=== PATIENT | female | born 1975 | race American Indian/Alaskan Native ===

== ENCOUNTER 2017-04-13 12:39 | Emergency (ER) | payer MEDICAID ==
[2017-04-13 13:28] VITALS: TEMP 98.1; O2SAT 100
[2017-04-13 13:34] VITALS: BMI 38.9
[2017-04-13] MEDS ORDERED: oxyCODONE 5 mg Immediate Release Tab PO STA (13:56)
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
--- NOTE | 2017-04-13 15:02 | RAD ---
PROCEDURE: Right Ankle Radiographs. HISTORY: r/o fx COMPARISON: None FINDINGS: BONES: Normal. No fracture. JOINTS: Normal. No osteoarthritis. Ankle mortise maintained. Talar dome intact SOFT TISSUES: Normal. OTHER FINDINGS: None. IMPRESSION: Normal right ankle radiographs.
--- NOTE | 2017-04-13 15:03 | RAD ---
PROCEDURE: Right Foot Radiographs. HISTORY: r/o fx COMPARISON: None. FINDINGS: BONES: Normal. No fracture. JOINTS: Normal. SOFT TISSUES: Normal. OTHER FINDINGS: None. IMPRESSION: No acute findings
[2017-04-13 16:05] VITALS: BP 147/88; PULSE 70; RESP 17
== END 2017-04-13 16:06 | disposition home or self-care (01) ==
LOC: ED 12:39
DX: M79.671 Pain in right foot (principal)

== ENCOUNTER 2017-04-14 18:25 | Observation (INO) | payer MEDICAID ==
[2017-04-14 18:33] VITALS: BMI 39.8
[2017-04-14] MEDS ORDERED: Oxycodone/Acetaminophen 5/325 mg Tab PO STA (18:47)
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
[2017-04-14 22:04] LABS: ADD MANUAL DIFF? NO
[2017-04-14 22:11] LABS: BASO # 0.03 K/mm3 (0.0-2.0); BASO % 0.3 % (0.0-3.0); EOS # 0.2 (0.0-0.7); EOS % 2.2 % (1.5-5.0); GRAN # 5.14 (1.4-6.5); HEMATOCRIT 35.8 % (36.0-48.0); LYMPH # 4.3 (1.2-3.4); LYMPH % 41.2 % (22.0-35.0); MEAN CELL VOLUME 87.3 fL (80.0-105.0); MEAN CORPUSCULAR HEMOGLOBIN 28.5 pg (25.0-35.0); MEAN CORPUSCULAR HGB CONC 32.7 g/dl (31.0-37.0); MEAN PLATELET VOLUME 9.1 fl (7.0-11.0); MONO # 0.8 (0.1-0.6); MONO % 7.3 % (1.0-6.0); PLATELET COUNT 486 10^3/uL (120.0-450.0); RED CELL DISTRIBUTION WIDTH 14.8 % (11.5-14.5); WHITE BLOOD COUNT 10.5 10^3/ul (4.5-11.0)
[2017-04-14 22:18] LABS: ALB/GLOB RATIO 1.4 (1.1-1.8); ALKALINE PHOSPHATASE 67 U/L (38-133); ALT/SGPT 32 U/L (7-56); AST/SGOT 29 U/L (15-39); BILIRUBIN,TOTAL 0.3 mg/dL (0.2-1.3); BLOOD UREA NITROGEN 15 mg/dL (7-21); CALCIUM 9.2 mg/dL (8.4-10.5); CARBON DIOXIDE 27 mmol/L (21-33); CHLORIDE 104 mmol/L (98-107); GFR AFRICAN-AMERICAN > 60; GLUCOSE,RANDOM 91 mg/dL (70-110); POTASSIUM 3.8 mmol/L (3.6-5.0); SODIUM 139 mmol/L (132-148); TOTAL PROTEIN 7.3 g/dL (5.8-8.3)
[2017-04-14 22:20] LABS: INR 0.99 (0.93-1.08); PARTIAL THROMBOPLASTIN TIME 27.8 Seconds (23.7-30.8)
[2017-04-14] MEDS ORDERED: Albuterol HFA 90 mcg/actuation (8 g) IH PRN (23:09)
[2017-04-14] MEDS ORDERED: Albuterol 0.083% Inhal Sol (2.5 mg/3 mL) UD IH PRN (23:21)
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
[2017-04-15 07:46] LABS: ADD MANUAL DIFF? NO
[2017-04-15 07:59] LABS: BASO # 0.03 K/mm3 (0.0-2.0); BASO % 0.4 % (0.0-3.0); EOS # 0.3 (0.0-0.7); EOS % 3.3 % (1.5-5.0); GRAN # 3.13 (1.4-6.5); GRAN % 41.3 % (50.0-68.0); HEMATOCRIT 34.2 % (36.0-48.0); LYMPH # 3.6 (1.2-3.4); MEAN CELL VOLUME 87.5 fL (80.0-105.0); MEAN CORPUSCULAR HEMOGLOBIN 28.9 pg (25.0-35.0); MEAN PLATELET VOLUME 9.1 fl (7.0-11.0); MONO # 0.6 (0.1-0.6); PLATELET COUNT 446 10^3/uL (120.0-450.0); RED CELL DISTRIBUTION WIDTH 14.9 % (11.5-14.5); WHITE BLOOD COUNT 7.6 10^3/ul (4.5-11.0)
[2017-04-15 08:06] LABS: ALB/GLOB RATIO 1.3 (1.1-1.8); ALKALINE PHOSPHATASE 55 U/L (38-133); ALT/SGPT 29 U/L (7-56); AST/SGOT 24 U/L (15-39); BILIRUBIN,TOTAL 0.4 mg/dL (0.2-1.3); BLOOD UREA NITROGEN 14 mg/dL (7-21); CALCIUM 8.7 mg/dL (8.4-10.5); CARBON DIOXIDE 28 mmol/L (21-33); CHLORIDE 105 mmol/L (98-107); GFR AFRICAN-AMERICAN > 60; GLUCOSE,RANDOM 94 mg/dL (70-110); SODIUM 138 mmol/L (132-148); TOTAL PROTEIN 6.6 g/dL (5.8-8.3)
--- NOTE | 2017-04-15 12:14 | CON ---
DATE: 04/15/2017 NEUROLOGY CONSULT CHIEF COMPLAINT: Right foot pain. HISTORY OF PRESENTING ILLNESS: This is a 42-year-old woman with past medical history of complex milly onal pain syndromes, Lyme disease, sarcoidosis, dizziness, fibromyalgia presented to the hospital for right ankle and right foot pain. The patient stated that she has been having complex regional pain syndrome affecting her left leg, and that she had some trauma at the snf. Therefore, she swain d left foot pain and could not bear weight on it, therefore, was bearing weight mostly on her right f oot. She says now she cannot bear feet on her right leg due to right foot pain. She has tried Neuro ntin, Lyrica, Cymbalta - almost every neuropathic drug on the list, has not had any minimal relief. She came down from ____ to meet a pain specialist. X-rays of the foot showed no acute findings. She is able to move her legs without any difficulty, just sensitivity to touch on both feet. She withdr kelvin to localized noxious stimulus, and proprioception is intact in the lower extremities. PAST MEDICAL HISTORY: History of complex regional pain syndrome, Lyme disease, sarcoidosis, dizzines s, fibromyalgia. PAST SURGICAL HISTORY: , tonsillectomy. ALLERGIES: ASPIRIN, ACETAMINOPHEN, IBUPROFEN, HEPARIN. SOCIAL HISTORY: No illicit drug use, smoking, or ETOH abuse, uses. REVIEW OF SYSTEMS: A 14-point review of systems is negative except for the HPI. PHYSICAL EXAMINATION: VITAL SIGNS: Temperature of 97.8, pulse rate 61, blood pressure 129/83, respiratory rate of 20, oxyg en saturation 98% via room air. GENERAL: The patient is sitting up in bed in no acute distress. HEENT: Atraumatic, normocephalic. PERRLA. Extraocular muscles intact. NECK: Supple. No JVD, no adenopathy noted. LUNGS: Clear to auscultation. No adventitious sounds. HEART: S1, S2, normal rate and rhythm. No murmurs, rubs, or gallops. ABDOMEN: Soft, nontender, nondistended. Bowel sounds are present. EXTREMITIES: No clubbing, no cyanosis. Peripheral pulses 2+ felt bilaterally. NEUROLOGIC: The patient is alert, oriented to person, place, month, and year. Speech is fluent with out any errors. Cranial nerves II-XII are intact. MOTOR: Moves all extremities equally. Toes are downgoing bilaterally. Normal tone, normal bulk of muscle. SENSORY: Light touch, pinprick, proprioception, vibration. DTRs 2+ throughout. COORDINATION: [id number]-[id number] intact. Gait is deferred for now. MUSCULOSKELETAL: She is able to feel her right foot, but has sensitivity to touch, has allodynia jordyn aterally in both feet. LABORATORY DATA: Sodium is 138, potassium 4, chloride 105, carbon dioxide 28, BUN of 14, creatinine 0.7. Random glucose is 94. ASSESSMENT AND PLAN: This is a 42-year-old woman with past medical history of complex regional pain syndrome?, Lyme disease, sarcoidosis, dizziness, asthma, and fibromyalgia presented with intractable right foot pain, and has already baseline left foot pain, came from ____ to seek for a pain specialis t, and was brought in for worsening right foot pain, unbearable to stand on her feet. At this time, I question that this is really a truly complex regional pain syndrome given the fact th at her temperature of her feet are intact, and there is no history of any major prior trauma, though it can be possibly type 1 as well. At this time, recommend interventional pain specialist or possibly sympathetic blocks to celiac/lumbo sacral plexus to help with pain. Continue with her amitriptyline ____ mg p.o. at bedtime, and will g et a physical therapy evaluation. Most of her workup is mostly outpatient, therefore, could consult pain specialist outpatient as well. At this time, continue current present medical management. Thank you for this consult. Emigdio Mccarty MD cc: [phone] TT: 04/15/2017 12:14:08 Confirmation # [id number] Dictation # [id number] romina
--- NOTE | 2017-04-15 14:43 | US ---
PROCEDURE: Right lower extremity venous US HISTORY: Leg pain and swelling. Evaluate for DVT. PHYSICIAN(S): Alexander Conway M.D. TECHNIQUE: Duplex sonography and color-flow Doppler with graded compression were used to evaluate the deep venous system of the right lower extremity. FINDINGS: The visualized deep venous system of the right lower extremity is sonographically normal and compressible. Normal waveforms and augmentation are seen. There is no sonographic evidence for deep venous thrombosis in the visualized segments of the right lower extremity. IMPRESSION: 1. No sonographic evidence for deep venous thrombosis in the visualized segments of the right lower extremity.
[2017-04-16 07:31] LABS: ADD MANUAL DIFF? NO
[2017-04-16 07:57] LABS: ALB/GLOB RATIO 1.3 (1.1-1.8); ALKALINE PHOSPHATASE 59 U/L (38-133); ALT/SGPT 27 U/L (7-56); AST/SGOT 23 U/L (15-39); BILIRUBIN,TOTAL 0.3 mg/dL (0.2-1.3); BLOOD UREA NITROGEN 8 mg/dL (7-21); CALCIUM 8.6 mg/dL (8.4-10.5); CARBON DIOXIDE 25 mmol/L (21-33); CHLORIDE 104 mmol/L (98-107); GFR AFRICAN-AMERICAN > 60; GLUCOSE,RANDOM 90 mg/dL (70-110); POTASSIUM 4.1 mmol/L (3.6-5.0); SODIUM 138 mmol/L (132-148); TOTAL PROTEIN 6.8 g/dL (5.8-8.3)
[2017-04-16 09:08] LABS: BASO # 0.03 K/mm3 (0.0-2.0); BASO % 0.4 % (0.0-3.0); EOS # 0.3 (0.0-0.7); EOS % 3.6 % (1.5-5.0); GRAN # 4.17 (1.4-6.5); GRAN % 49.4 % (50.0-68.0); HEMATOCRIT 37.3 % (36.0-48.0); LYMPH # 3.3 (1.2-3.4); LYMPH % 39.1 % (22.0-35.0); MEAN CELL VOLUME 86.5 fL (80.0-105.0); MEAN CORPUSCULAR HEMOGLOBIN 28.5 pg (25.0-35.0); MEAN PLATELET VOLUME 9.3 fl (7.0-11.0); MONO # 0.6 (0.1-0.6); MONO % 7.5 % (1.0-6.0); PLATELET COUNT 480 10^3/uL (120.0-450.0); RED CELL DISTRIBUTION WIDTH 14.4 % (11.5-14.5); WHITE BLOOD COUNT 8.4 10^3/ul (4.5-11.0)
[2017-04-16] MEDS: Oxycodone/Acetaminophen 5/325 mg Tab PO PRN ×2 (14:08→21:44)
[2017-04-16] MEDS: oxyCODONE 10 mg ER Tab (oxyCONTIN) PO SCH (17:18)
--- NOTE | 2017-04-16 17:22 | CP.PCM.PN ---
<SekouRoberto coulter - Last Filed: 04/16/17 17:16> Subjective - Date & Time of Evaluation Date of Evaluation: 04/16/17 Time of Evaluation: 09:00 - Subjective Subjective: Medicine Progress note. Dr. Ibanez Pt seen and examined at bedside. No acute events overnight. Still with lower extremity pain. Patient states that she plans on working with Physical therapy today. Denies any CP/SOB. No N/V/D. no Abd pain. no new complaints. Objective - Vital Signs/Intake and Output Vital Signs (last 24 hours): Temp Pulse Resp BP Pulse Ox 98.2 F 76 20 144/86 99 04/16/17 16:00 04/16/17 16:00 04/16/17 16:00 04/16/17 16:00 04/16/17 16:00 Intake and Output: 04/16/17 04/16/17 06:59 18:59 Intake Total 900 Balance 900 - Medications Medications: Current Medications Albuterol Sulfate (Albuterol 0.083% Inhal Sandee (2.5 Mg/3 Ml) Ud) 2.5 mg IH [id number] PRN PRN Reason: Shortness of Breath Amitriptyline HCl (Elavil) 10 mg PO HS [facility] Last Admin: 04/15/17 21:37 Dose: 10 mg Cyclobenzaprine HCl (Flexeril) 10 mg PO TID PRN PRN Reason: Pain, moderate (4-7) Last Admin: 04/16/17 12:29 Dose: 10 mg Famotidine (Pepcid) 20 mg PO DAILY [facility] Last Admin: 04/16/17 09:52 Dose: 20 mg Ketorolac Tromethamine (Toradol) 30 mg IVP Q6 PRN PRN Reason: Pain, moderate (4-7) Last Admin: 04/16/17 07:48 Dose: 30 mg Ondansetron HCl (Zofran Tab) 4 mg PO Q8H PRN PRN Reason: Nausea/Vomiting Last Admin: 04/16/17 00:27 Dose: 4 mg Oxycodone HCl (Oxycontin Extended Release Tab) 10 mg PO Q12H [facility] Stop: 04/19/17 18:01 Oxycodone/Acetaminophen (Percocet 5/325 Mg Tab) 1 tab PO Q6H PRN PRN Reason: Pain, severe (8-10) Stop: 04/19/17 13:45 Last Admin: 04/16/17 14:08 Dose: 1 tab - Labs Labs: 04/16/17 07:00 04/16/17 07:00 PT 10.7 Seconds (9.9-11.8) 04/14/17 21:59 INR 0.99 (0.93-1.08) 04/14/17 21:59 APTT 27.8 Seconds (23.7-30.8) 04/14/17 21:59 - Constitutional Appears: Well, No Acute Distress - Head Exam Head Exam: ATRAUMATIC, NORMAL INSPECTION, NORMOCEPHALIC - Eye Exam Eye Exam: EOMI, Normal appearance, PERRL. absent: Scleral icterus Pupil Exam: PERRL - ENT Exam ENT Exam: Mucous Membranes Moist - Neck Exam Neck Exam: Full ROM - Respiratory Exam Respiratory Exam: Clear to Ausculation Bilateral, Rales, Rhonchi, NORMAL BREATHING PATTERN. absent: Decreased Breath Sounds, Wheezes, Respiratory Distress - GI/Abdominal Exam GI & Abdominal Exam: Soft. absent: Distended, Firm, Guarding, Rigid, Tenderness , Rebound - Extremities Exam Additional comments: tender to palpation on posterior aspect of right ankle. No apparent swelling. Distal pulses are intact. Temperature is equal bilaterally. Sensation is intact. - Neurological Exam Neurological Exam: Alert, Awake, Oriented x3 Neuro motor strength exam: Left Upper Extremity: 5, Right Upper Extremity: 5, Left Lower Extremity: 5, Right Lower Extremity: 5 - Psychiatric Exam Psychiatric exam: Normal Affect, Normal Mood - Skin Skin Exam: Dry, Intact, Normal Color, Warm Assessment and Plan - Assessment and Plan (Free Text) Assessment: 42yo F with PMHx of complex regional pain syndrome, lyme disease, sarcoidosis, asthma, fibromyalgia presents with intractable right leg pain. Plan: 1. intractable right leg pain - xray showed no acute disease - LE US wnl - cont home med of amitriptyline - Pain management: toradol q6 prn pain, Percocet prn - Neurology consult obtained, Dr. Mccarty, appreciate recs Consider interventional pain specialist would benefit with out-patient follow up - Pain management consult requested, Dr. Auguste, appreciate recs 2. asthma - albuterol PRN 3. PPx pepcid SCDs Dispo: Physical Therapy recommends Home w/Services vs. Subacute Rehab Social work: pending placement to [facility] Discussed case with Dr. Shamar Sapp PGY1 <Asia Ibanez MD - Last Filed: 04/18/17 08:00> Objective - Vital Signs/Intake and Output Vital Signs (last 24 hours): Temp Pulse Resp BP Pulse Ox 98.8 F 66 18 133/67 100 04/17/17 17:28 04/17/17 17:28 04/17/17 17:28 04/17/17 17:28 04/17/17 17:28 Intake and Output: 04/18/17 04/18/17 06:59 18:59 Intake Total 1240 Balance 1240 - Medications Medications: Current Medications Albuterol Sulfate (Albuterol 0.083% Inhal Sandee (2.5 Mg/3 Ml) Ud) 2.5 mg IH [id number] PRN PRN Reason: Shortness of Breath Amitriptyline HCl (Elavil) 10 mg PO HS [facility] Last Admin: 04/17/17 21:36 Dose: 10 mg Cyclobenzaprine HCl (Flexeril) 10 mg PO TID PRN PRN Reason: Pain, moderate (4-7) Last Admin: 04/17/17 21:37 Dose: 10 mg Famotidine (Pepcid) 20 mg PO DAILY [facility] Last Admin: 04/17/17 10:47 Dose: 20 mg Ketorolac Tromethamine (Toradol) 30 mg IVP Q6 PRN PRN Reason: Pain, moderate (4-7) Last Admin: 04/18/17 00:04 Dose: 30 mg Ondansetron HCl (Zofran Tab) 4 mg PO Q8H PRN PRN Reason: Nausea/Vomiting Last Admin: 04/16/17 00:27 Dose: 4 mg Oxycodone HCl (Oxycontin Extended Release Tab) 10 mg PO Q12H [facility] Stop: 04/19/17 18:01 Last Admin: 04/18/17 05:57 Dose: 10 mg Oxycodone/Acetaminophen (Percocet 5/325 Mg Tab) 1 tab PO Q6H PRN PRN Reason: Pain, severe (8-10) Stop: 04/19/17 13:45 Last Admin: 04/18/17 03:31 Dose: 1 tab - Labs Labs: 04/17/17 05:00 04/17/17 05:00 PT 10.7 Seconds (9.9-11.8) 04/14/17 21:59 INR 0.99 (0.93-1.08) 04/14/17 21:59 APTT 27.8 Seconds (23.7-30.8) 04/14/17 21:59 Attending/Attestation - Attestation I have personally seen and examined this patient.: Yes I have fully participated in the care of the patient.: Yes I have reviewed all pertinent clinical information, including history, physical exam and plan: Yes Notes (Text): 04/18/17 08:00 Patient was seen and examined with medical assisting instructor .Agreed with resident assessment and plan. Management plan was discussed in detail with patient Education was provided.
[2017-04-16] MEDS ORDERED: oxyCODONE 10 mg ER Tab (oxyCONTIN) PO SCH (18:00)
[2017-04-17] MEDS: Oxycodone/Acetaminophen 5/325 mg Tab PO PRN ×3 (04:21→21:41)
[2017-04-17] MEDS: oxyCODONE 10 mg ER Tab (oxyCONTIN) PO SCH ×2 (06:06→17:44)
[2017-04-17 07:17] LABS: ADD MANUAL DIFF? NO
[2017-04-17 07:27] LABS: BASO # 0.04 K/mm3 (0.0-2.0); BASO % 0.4 % (0.0-3.0); EOS # 0.2 (0.0-0.7); EOS % 2.5 % (1.5-5.0); GRAN # 3.95 (1.4-6.5); GRAN % 42.1 % (50.0-68.0); LYMPH # 4.4 (1.2-3.4); LYMPH % 46.8 % (22.0-35.0); MEAN CELL VOLUME 87.2 fL (80.0-105.0); MEAN CORPUSCULAR HEMOGLOBIN 28.6 pg (25.0-35.0); MEAN CORPUSCULAR HGB CONC 32.8 g/dl (31.0-37.0); MONO # 0.8 (0.1-0.6); MONO % 8.2 % (1.0-6.0); PLATELET COUNT 487 10^3/uL (120.0-450.0); RED CELL DISTRIBUTION WIDTH 14.3 % (11.5-14.5); WHITE BLOOD COUNT 9.4 10^3/ul (4.5-11.0)
[2017-04-17 07:33] LABS: ALB/GLOB RATIO 1.5 (1.1-1.8); ALKALINE PHOSPHATASE 58 U/L (38-133); ALT/SGPT 30 U/L (7-56); AST/SGOT 23 U/L (15-39); BILIRUBIN,TOTAL 0.3 mg/dL (0.2-1.3); BLOOD UREA NITROGEN 9 mg/dL (7-21); CALCIUM 8.7 mg/dL (8.4-10.5); CARBON DIOXIDE 26 mmol/L (21-33); CHLORIDE 101 mmol/L (95-110); GFR AFRICAN-AMERICAN > 60; GLUCOSE,RANDOM 83 mg/dL (70-110); POTASSIUM 3.8 mmol/L (3.6-5.0); SODIUM 135 mmol/L (132-148); TOTAL PROTEIN 6.9 g/dL (5.8-8.3)
[2017-04-17] MEDS ORDERED: Oxycodone/Acetaminophen 5/325 mg Tab PO ONE (14:52)
--- NOTE | 2017-04-17 16:14 | CP.PCM.PN ---
<SekouRoberto - Last Filed: 04/17/17 16:10> Subjective - Date & Time of Evaluation Date of Evaluation: 04/17/17 Time of Evaluation: 08:00 - Subjective Subjective: Medicine Progress note. Dr. Ibanez Pt seen and examined at bedside. No acute events overnight. Patient still unable to ambulate. States that she plans on working with Physical Therapy today. Denies any CP/SOB. No N/V/D. No Abd pain. Still c/o pain in the right ankle. Objective - Vital Signs/Intake and Output Vital Signs (last 24 hours): Temp Pulse Resp BP Pulse Ox 97.7 F 66 20 141/84 99 04/17/17 08:25 04/17/17 08:25 04/17/17 08:25 04/17/17 08:25 04/17/17 08:25 Intake and Output: 04/17/17 04/17/17 06:59 18:59 Intake Total 1260 Balance 1260 - Medications Medications: Current Medications Albuterol Sulfate (Albuterol 0.083% Inhal Sandee (2.5 Mg/3 Ml) Ud) 2.5 mg IH [id number] PRN PRN Reason: Shortness of Breath Amitriptyline HCl (Elavil) 10 mg PO HS [facility] Last Admin: 04/16/17 21:44 Dose: 10 mg Cyclobenzaprine HCl (Flexeril) 10 mg PO TID PRN PRN Reason: Pain, moderate (4-7) Last Admin: 04/17/17 08:33 Dose: 10 mg Famotidine (Pepcid) 20 mg PO DAILY [facility] Last Admin: 04/17/17 10:47 Dose: 20 mg Ketorolac Tromethamine (Toradol) 30 mg IVP Q6 PRN PRN Reason: Pain, moderate (4-7) Last Admin: 04/17/17 12:55 Dose: 30 mg Ondansetron HCl (Zofran Tab) 4 mg PO Q8H PRN PRN Reason: Nausea/Vomiting Last Admin: 04/16/17 00:27 Dose: 4 mg Oxycodone HCl (Oxycontin Extended Release Tab) 10 mg PO Q12H [facility] Stop: 04/19/17 18:01 Last Admin: 04/17/17 06:06 Dose: 10 mg Oxycodone/Acetaminophen (Percocet 5/325 Mg Tab) 1 tab PO Q6H PRN PRN Reason: Pain, severe (8-10) Stop: 04/19/17 13:45 Last Admin: 04/17/17 10:47 Dose: 1 tab - Labs Labs: 04/17/17 05:00 04/17/17 05:00 PT 10.7 Seconds (9.9-11.8) 04/14/17 21:59 INR 0.99 (0.93-1.08) 04/14/17 21:59 APTT 27.8 Seconds (23.7-30.8) 04/14/17 21:59 - Constitutional Appears: Well, No Acute Distress - Head Exam Head Exam: ATRAUMATIC, NORMAL INSPECTION, NORMOCEPHALIC - Eye Exam Eye Exam: EOMI, Normal appearance, PERRL. absent: Scleral icterus Pupil Exam: PERRL - ENT Exam ENT Exam: Mucous Membranes Moist - Neck Exam Neck Exam: Full ROM - Respiratory Exam Respiratory Exam: Clear to Ausculation Bilateral. absent: Wheezes - Cardiovascular Exam Cardiovascular Exam: RRR, +S1, +S2. absent: JVD, Murmur - GI/Abdominal Exam GI & Abdominal Exam: Soft. absent: Distended, Guarding, Tenderness, Mass, Rebound - Extremities Exam Additional comments: Tender to palpation bilateral ankles, worse right compared to left. No apparent swelling. Distal pulses intact. - Neurological Exam Neurological Exam: Alert, Awake, Oriented x3 - Psychiatric Exam Psychiatric exam: Normal Affect, Normal Mood - Skin Skin Exam: Dry, Intact, Normal Color, Warm Assessment and Plan - Assessment and Plan (Free Text) Assessment: 42yo F with PMHx of complex regional pain syndrome, lyme disease, sarcoidosis, asthma, fibromyalgia presents with intractable right leg pain. Plan: 1. intractable right leg pain - xray showed no acute disease - LE US wnl - cont home med of amitriptyline - Pain management: toradol q6 prn pain, Percocet prn - Neurology consult obtained, Dr. Mccarty, appreciate recs Consider interventional pain specialist would benefit with out-patient follow up - Pain management consult requested, Dr. Auguste, appreciate recs Oxycodone ER 10mg PO q12 2. Hx of Asthma - albuterol PRN 3. PPx pepcid SCDs Dispo: Physical Therapy recommends Home w/Services vs. Subacute Rehab Social work: pending placement to [facility]. Patient denied by insurance to multiple different facilities. Awaiting phone call by Insurance Physician for Peer-to- peer. Discussed case with Dr. Shamar Sapp PGY1 <Shamar ZURITA,Asia - Last Filed: 04/18/17 07:59> Objective - Vital Signs/Intake and Output Vital Signs (last 24 hours): Temp Pulse Resp BP Pulse Ox 98.8 F 66 18 133/67 100 04/17/17 17:28 04/17/17 17:28 04/17/17 17:28 04/17/17 17:28 04/17/17 17:28 Intake and Output: 04/18/17 04/18/17 06:59 18:59 Intake Total 1240 Balance 1240 - Medications Medications: Current Medications Albuterol Sulfate (Albuterol 0.083% Inhal Sandee (2.5 Mg/3 Ml) Ud) 2.5 mg IH [id number] PRN PRN Reason: Shortness of Breath Amitriptyline HCl (Elavil) 10 mg PO HS [facility] Last Admin: 04/17/17 21:36 Dose: 10 mg Cyclobenzaprine HCl (Flexeril) 10 mg PO TID PRN PRN Reason: Pain, moderate (4-7) Last Admin: 04/17/17 21:37 Dose: 10 mg Famotidine (Pepcid) 20 mg PO DAILY [facility] Last Admin: 04/17/17 10:47 Dose: 20 mg Ketorolac Tromethamine (Toradol) 30 mg IVP Q6 PRN PRN Reason: Pain, moderate (4-7) Last Admin: 04/18/17 00:04 Dose: 30 mg Ondansetron HCl (Zofran Tab) 4 mg PO Q8H PRN PRN Reason: Nausea/Vomiting Last Admin: 04/16/17 00:27 Dose: 4 mg Oxycodone HCl (Oxycontin Extended Release Tab) 10 mg PO Q12H [facility] Stop: 04/19/17 18:01 Last Admin: 04/18/17 05:57 Dose: 10 mg Oxycodone/Acetaminophen (Percocet 5/325 Mg Tab) 1 tab PO Q6H PRN PRN Reason: Pain, severe (8-10) Stop: 04/19/17 13:45 Last Admin: 04/18/17 03:31 Dose: 1 tab - Labs Labs: 04/17/17 05:00 04/17/17 05:00 PT 10.7 Seconds (9.9-11.8) 04/14/17 21:59 INR 0.99 (0.93-1.08) 04/14/17 21:59 APTT 27.8 Seconds (23.7-30.8) 04/14/17 21:59 Attending/Attestation - Attestation I have personally seen and examined this patient.: Yes I have fully participated in the care of the patient.: Yes I have reviewed all pertinent clinical information, including history, physical exam and plan: Yes Notes (Text): 04/18/17 07:58 Patient was seen and examined with medical van driver .Agreed with resident assessment and plan. Management plan was discussed in detail with patient Education was provided.
[2017-04-17 23:17] LABS: VITAMIN B6 8.7 ng/mL (2.1-21.7)
[2017-04-18] MEDS: Oxycodone/Acetaminophen 5/325 mg Tab PO PRN ×2 (03:31→11:36)
[2017-04-18] MEDS: oxyCODONE 10 mg ER Tab (oxyCONTIN) PO SCH ×2 (05:57→18:02)
[2017-04-18 08:46] VITALS: RESP 20
--- NOTE | 2017-04-18 16:14 | CP.PCM.PN ---
<Roberto Sapp - Last Filed: 04/18/17 16:20> Subjective - Date & Time of Evaluation Date of Evaluation: 04/18/17 Time of Evaluation: 10:12 - Subjective Subjective: Medicine Progress note. Dr. Ibanez Pt seen and examined at bedside. States that she did not have a good night of restful sleep. Denies any chest pain, sob. No improvement in foot pain. Still unable to ambulate Objective - Vital Signs/Intake and Output Vital Signs (last 24 hours): Temp Pulse Resp BP Pulse Ox 97.6 F 65 20 144/86 99 04/18/17 08:00 04/18/17 08:00 04/18/17 08:00 04/18/17 08:00 04/18/17 08:00 Intake and Output: 04/18/17 04/18/17 06:59 18:59 Intake Total 1240 640 Output Total 3 Balance 1240 637 - Medications Medications: Current Medications Albuterol Sulfate (Albuterol 0.083% Inhal Sandee (2.5 Mg/3 Ml) Ud) 2.5 mg IH [id number] PRN PRN Reason: Shortness of Breath Amitriptyline HCl (Elavil) 10 mg PO HS [facility] Last Admin: 04/17/17 21:36 Dose: 10 mg Cyclobenzaprine HCl (Flexeril) 10 mg PO TID PRN PRN Reason: Pain, moderate (4-7) Last Admin: 04/18/17 13:58 Dose: 10 mg Famotidine (Pepcid) 20 mg PO DAILY [facility] Last Admin: 04/18/17 11:37 Dose: 20 mg Ketorolac Tromethamine (Toradol) 30 mg IVP Q6 PRN PRN Reason: Pain, moderate (4-7) Last Admin: 04/18/17 15:18 Dose: 30 mg Ondansetron HCl (Zofran Tab) 4 mg PO Q8H PRN PRN Reason: Nausea/Vomiting Last Admin: 04/16/17 00:27 Dose: 4 mg Oxycodone HCl (Oxycontin Extended Release Tab) 10 mg PO Q12H [facility] Stop: 04/19/17 18:01 Last Admin: 04/18/17 05:57 Dose: 10 mg Oxycodone/Acetaminophen (Percocet 5/325 Mg Tab) 1 tab PO Q6H PRN PRN Reason: Pain, severe (8-10) Stop: 04/19/17 13:45 Last Admin: 04/18/17 11:36 Dose: 1 tab - Labs Labs: 04/17/17 05:00 04/17/17 05:00 PT 10.7 Seconds (9.9-11.8) 04/14/17 21:59 INR 0.99 (0.93-1.08) 04/14/17 21:59 APTT 27.8 Seconds (23.7-30.8) 04/14/17 21:59 - Constitutional Appears: Well, No Acute Distress - Head Exam Head Exam: ATRAUMATIC, NORMAL INSPECTION, NORMOCEPHALIC - Eye Exam Eye Exam: EOMI, Normal appearance, PERRL. absent: Scleral icterus Pupil Exam: PERRL - ENT Exam ENT Exam: Mucous Membranes Moist - Neck Exam Neck Exam: Full ROM - Respiratory Exam Respiratory Exam: Clear to Ausculation Bilateral, NORMAL BREATHING PATTERN. absent: Wheezes - Cardiovascular Exam Cardiovascular Exam: RRR, +S1, +S2. absent: JVD - GI/Abdominal Exam GI & Abdominal Exam: Soft - Extremities Exam Additional comments: lower extremity: neurovascularly intact bilaterally. No swelling, no erythema - Neurological Exam Neurological Exam: Alert, Awake, Oriented x3 - Psychiatric Exam Psychiatric exam: Normal Affect, Normal Mood - Skin Skin Exam: Dry, Intact, Normal Color, Warm Assessment and Plan - Assessment and Plan (Free Text) Assessment: 42yo F with PMHx of complex regional pain syndrome, lyme disease, sarcoidosis, asthma, fibromyalgia presents with intractable right leg pain. Plan: 1. intractable right leg pain - xray showed no acute disease - LE US wnl - cont home med of amitriptyline - Pain management: toradol q6 prn pain, Percocet prn - Neurology consult obtained, Dr. Mccarty, appreciate recs Consider interventional pain specialist would benefit with out-patient follow up - Pain management consult requested, Dr. Auguste, appreciate recs Oxycodone ER 10mg PO q12 2. Hx of Asthma - albuterol PRN 3. PPx pepcid SCDs Dispo: Physical Therapy recommends Subacute Rehab Social work: pending placement to [facility]. Patient denied by insurance to multiple different facilities. Message left with [employer] insurance rep. The case is currently being forwarded to the insurance physician technical sales representative, Awaiting call back. Discussed case with Dr. Shamar Sapp PGY1 <Asia Ibanez MD - Last Filed: 04/18/17 16:40> Objective - Vital Signs/Intake and Output Vital Signs (last 24 hours): Temp Pulse Resp BP Pulse Ox 98.3 F 74 20 125/83 96 04/18/17 16:00 04/18/17 16:00 04/18/17 16:00 04/18/17 16:00 04/18/17 16:00 Intake and Output: 04/18/17 04/18/17 06:59 18:59 Intake Total 1240 640 Output Total 3 Balance 1240 637 - Medications Medications: Current Medications Albuterol Sulfate (Albuterol 0.083% Inhal Sandee (2.5 Mg/3 Ml) Ud) 2.5 mg IH [id number] PRN PRN Reason: Shortness of Breath Amitriptyline HCl (Elavil) 10 mg PO HS [facility] Last Admin: 04/17/17 21:36 Dose: 10 mg Cyclobenzaprine HCl (Flexeril) 10 mg PO TID PRN PRN Reason: Pain, moderate (4-7) Last Admin: 04/18/17 13:58 Dose: 10 mg Famotidine (Pepcid) 20 mg PO DAILY [facility] Last Admin: 04/18/17 11:37 Dose: 20 mg Ketorolac Tromethamine (Toradol) 30 mg IVP Q6 PRN PRN Reason: Pain, moderate (4-7) Last Admin: 04/18/17 15:18 Dose: 30 mg Ondansetron HCl (Zofran Tab) 4 mg PO Q8H PRN PRN Reason: Nausea/Vomiting Last Admin: 04/16/17 00:27 Dose: 4 mg Oxycodone HCl (Oxycontin Extended Release Tab) 10 mg PO Q12H [facility] Stop: 04/19/17 18:01 Last Admin: 04/18/17 05:57 Dose: 10 mg Oxycodone/Acetaminophen (Percocet 5/325 Mg Tab) 1 tab PO Q6H PRN PRN Reason: Pain, severe (8-10) Stop: 04/19/17 13:45 Last Admin: 04/18/17 11:36 Dose: 1 tab Zolpidem Tartrate (Ambien) 5 mg PO HS PRN; Protocol PRN Reason: Insomnia - Labs Labs: 04/17/17 05:00 04/17/17 05:00 PT 10.7 Seconds (9.9-11.8) 04/14/17 21:59 INR 0.99 (0.93-1.08) 04/14/17 21:59 APTT 27.8 Seconds (23.7-30.8) 04/14/17 21:59 Attending/Attestation - Attestation I have personally seen and examined this patient.: Yes I have fully participated in the care of the patient.: Yes I have reviewed all pertinent clinical information, including history, physical exam and plan: Yes Notes (Text): 04/18/17 16:38 Patient was seen and examined with medical technicians .Agreed with resident assessment and plan. Patient is still complaining of leg pain, unable to ambulate.PT has recommended [facility].Case management is working on disposition.Insurance to re review patient case after initial denial.Patient can be discharged once arrangement are made. Management plan was discussed in detail with patient Education was provided.
[2017-04-19] MEDS: oxyCODONE 10 mg ER Tab (oxyCONTIN) PO SCH ×2 (05:37→17:04)
[2017-04-19] MEDS: Oxycodone/Acetaminophen 5/325 mg Tab PO PRN (08:05)
--- NOTE | 2017-04-19 18:59 | CP.PCM.PN ---
<Roberto Sapp - Last Filed: 04/19/17 18:56> Subjective - Date & Time of Evaluation Date of Evaluation: 04/19/17 Time of Evaluation: 14:00 - Subjective Subjective: Medicine Progress note. Dr. Ibanez Pt seen and examined at bedside. No acute events overnight. Patient still c/o bilateral foot pain, right worse than left. Patient states that she is unable to ambulate. Denies any fever or chills. No chest pain, no SOB. No bowel changes. No urinary changes. No N/V/D. No Abdominal pain. Tolerating diet Objective - Vital Signs/Intake and Output Vital Signs (last 24 hours): Temp Pulse Resp BP Pulse Ox 98.4 F 98 H 20 186/104 H 100 04/19/17 16:00 04/19/17 16:00 04/19/17 16:00 04/19/17 16:00 04/19/17 16:00 Intake and Output: 04/19/17 04/19/17 06:59 18:59 Intake Total 720 840 Balance 720 840 - Medications Medications: Current Medications Albuterol Sulfate (Albuterol 0.083% Inhal Sandee (2.5 Mg/3 Ml) Ud) 2.5 mg IH [id number] PRN PRN Reason: Shortness of Breath Amitriptyline HCl (Elavil) 10 mg PO HS [facility] Last Admin: 04/18/17 22:42 Dose: 10 mg Cyclobenzaprine HCl (Flexeril) 10 mg PO TID PRN PRN Reason: Pain, moderate (4-7) Last Admin: 04/19/17 17:04 Dose: 10 mg Famotidine (Pepcid) 20 mg PO DAILY [facility] Last Admin: 04/19/17 09:43 Dose: 20 mg Ketorolac Tromethamine (Toradol) 30 mg IVP Q6H PRN PRN Reason: Pain, moderate (4-7) Stop: 04/21/17 11:12 Last Admin: 04/19/17 18:36 Dose: 30 mg Ondansetron HCl (Zofran Tab) 4 mg PO Q8H PRN PRN Reason: Nausea/Vomiting Last Admin: 04/16/17 00:27 Dose: 4 mg Zolpidem Tartrate (Ambien) 5 mg PO HS PRN; Protocol PRN Reason: Insomnia Last Admin: 04/18/17 22:42 Dose: 5 mg - Labs Labs: 04/17/17 05:00 04/17/17 05:00 PT 10.7 Seconds (9.9-11.8) 04/14/17 21:59 INR 0.99 (0.93-1.08) 04/14/17 21:59 APTT 27.8 Seconds (23.7-30.8) 04/14/17 21:59 - Constitutional Appears: Well, No Acute Distress - Head Exam Head Exam: ATRAUMATIC, NORMAL INSPECTION, NORMOCEPHALIC - Eye Exam Eye Exam: EOMI, Normal appearance, PERRL. absent: Scleral icterus Pupil Exam: PERRL - ENT Exam ENT Exam: Mucous Membranes Moist - Neck Exam Neck Exam: Full ROM - Respiratory Exam Respiratory Exam: Clear to Ausculation Bilateral, NORMAL BREATHING PATTERN. absent: Accessory Muscle Use, Decreased Breath Sounds, Rales, Rhonchi, Wheezes, Respiratory Distress - Cardiovascular Exam Cardiovascular Exam: RRR, +S1, +S2. absent: JVD - GI/Abdominal Exam GI & Abdominal Exam: Soft, Normal Bowel Sounds. absent: Distended, Firm, Guarding, Tenderness, Rebound - Extremities Exam Additional comments: Tender to palpation right posterior ankle. Distal Pulses intact bilaterally. Neurovascularly intact. No erythema. No gross swelling. Decreased active and passive ROM due to pain - Neurological Exam Neurological Exam: Alert, Awake, Oriented x3 - Skin Skin Exam: Dry, Intact, Normal Color, Warm Assessment and Plan - Assessment and Plan (Free Text) Assessment: 42yo F with PMHx of complex regional pain syndrome, lyme disease, sarcoidosis, asthma, fibromyalgia presents with intractable right leg pain. Plan: 1. intractable right leg pain - unable to ambulate - xray showed no acute disease - LE US wnl - cont home med of amitriptyline - Pain management: toradol q6 prn pain - Neurology consult obtained, Dr. Mccarty, appreciate recs Consider interventional pain specialist would benefit with out-patient follow up - Pain management consult requested, Dr. Auguste, appreciate recs Oxycodone ER 10mg PO q12 2. Hx of Asthma - albuterol PRN 3. PPx pepcid SCDs Dispo: Physical Therapy recommends Subacute Rehab. Patient remains non-ambulatory. Social work: Patient denied by insurance to multiple different facilities. Insurance denied in-patient and [facility]. At 11:30AM, [id number] discussion was had. Call received from Dr. Brown, who introduced herself as the [facility] care director. She states that she has reviewed the patient's case. We discussed the patient's current hospitalization in detail. I made Dr. Brown aware that the patient is in contact with an [facility] sales manager [place] who the patient states has recommended [facility] placement. I have made Dr. Brown aware about Neurology recommendations and Physical Therapy recommendations. She states that she has records of the patient being evaluated at multiple ERs and based on those records and our records at [facility], the patient will be denied in-patient treatment and denied [facility] placement. She does state that the patient will be approved for out-patient work up, observation stay for the current admission, apartment leasing consultant evaluation, home/out-patient PT services, and wheelchair needs. I talked to the patient at length about the discussion above. Patient states that she would like to discuss with her insurance company herself. After she had the discussion with her insurance company, patient is asking for an appeal process to be started on her behalf. Our case management and social work team have been made aware. Prescription for wheelchair has been provided. Awaiting further recs from case mgmt. Discussed case with Dr. Shamar Sapp PGY1 <Shamar ZURITA,[facility] - Last Filed: 04/30/17 07:41> Objective - Vital Signs/Intake and Output Vital Signs (last 24 hours): Temp Pulse Resp BP Pulse Ox 98.1 F 83 20 139/79 97 04/20/17 15:57 04/20/17 15:57 04/20/17 15:57 04/20/17 15:57 04/20/17 15:57 - Labs Labs: 04/17/17 05:00 04/17/17 05:00 PT 10.7 Seconds (9.9-11.8) 04/14/17 21:59 INR 0.99 (0.93-1.08) 04/14/17 21:59 APTT 27.8 Seconds (23.7-30.8) 04/14/17 21:59 Attending/Attestation - Attestation I have personally seen and examined this patient.: Yes I have fully participated in the care of the patient.: Yes I have reviewed all pertinent clinical information, including history, physical exam and plan: Yes Notes (Text): 04/30/17 07:41 Patient was seen and examined with medical secretary receptionist .Agreed with resident assessment and plan. Management plan was discussed in detail with patient Education was provided.
[2017-04-19] MEDS ORDERED: Oxycodone/Acetaminophen 5/325 mg Tab PO ONE (21:59)
--- NOTE | 2017-04-20 00:02 | CP.PCM.PN ---
Subjective - Date & Time of Evaluation Date of Evaluation: 04/19/17 Time of Evaluation: 23:00 - Subjective Subjective: # 22 angiocath was inserted in right forearm. Dx:Poor venous access. Objective - Vital Signs/Intake and Output Vital Signs (last 24 hours): Temp Pulse Resp BP Pulse Ox 98.4 F 98 H 20 186/104 H 100 04/19/17 16:00 04/19/17 16:00 04/19/17 16:00 04/19/17 16:00 04/19/17 16:00 Intake and Output: 04/19/17 04/20/17 18:59 06:59 Intake Total 840 Balance 840 - Medications Medications: Current Medications Albuterol Sulfate (Albuterol 0.083% Inhal Sandee (2.5 Mg/3 Ml) Ud) 2.5 mg IH [id number] PRN PRN Reason: Shortness of Breath Amitriptyline HCl (Elavil) 10 mg PO HS [facility] Last Admin: 04/19/17 21:43 Dose: 10 mg Cyclobenzaprine HCl (Flexeril) 10 mg PO TID PRN PRN Reason: Pain, moderate (4-7) Last Admin: 04/19/17 21:43 Dose: 10 mg Famotidine (Pepcid) 20 mg PO DAILY [facility] Last Admin: 04/19/17 09:43 Dose: 20 mg Ketorolac Tromethamine (Toradol) 30 mg IVP Q6H PRN PRN Reason: Pain, moderate (4-7) Stop: 04/21/17 11:12 Last Admin: 04/19/17 18:36 Dose: 30 mg Ondansetron HCl (Zofran Tab) 4 mg PO Q8H PRN PRN Reason: Nausea/Vomiting Last Admin: 04/16/17 00:27 Dose: 4 mg Zolpidem Tartrate (Ambien) 5 mg PO HS PRN; Protocol PRN Reason: Insomnia Last Admin: 04/18/17 22:42 Dose: 5 mg - Labs Labs: 04/17/17 05:00 04/17/17 05:00 PT 10.7 Seconds (9.9-11.8) 04/14/17 21:59 INR 0.99 (0.93-1.08) 04/14/17 21:59 APTT 27.8 Seconds (23.7-30.8) 04/14/17 21:59
[2017-04-20 15:58] VITALS: BP 139/79; PULSE 83; TEMP 98.1; O2SAT 97
--- NOTE | 2017-04-20 16:15 | CP.PCM.DIS ---
<Merissa Verde - Last Filed: 04/20/17 16:14> Provider - Provider Date of Admission: 04/16/17 17:30 Attending physician: Asia Ibanez MD Primary care physician: Sammy Moreno MD Consults: Drs. Nixon Mccarty and Usman Time Spent in preparation of Discharge (in minutes): 35 Hospital Course - Lab Results Lab Results: Most Recent Lab Values WBC 9.4 10^3/ul (4.5-11.0) 04/17/17 05:00 RBC 4.13 10^6/uL (3.5-6.1) 04/17/17 05:00 Hgb 11.8 gm/dL (12.0-16.0) L 04/17/17 05:00 Hct 36.0 % (36.0-48.0) 04/17/17 05:00 MCV 87.2 fL (80.0-105.0) 04/17/17 05:00 MCH 28.6 pg (25.0-35.0) 04/17/17 05:00 MCHC 32.8 g/dl (31.0-37.0) 04/17/17 05:00 RDW 14.3 % (11.5-14.5) 04/17/17 05:00 Plt Count 487 10^3/uL (120.0-450.0) H 04/17/17 05:00 MPV 9.0 fl (7.0-11.0) 04/17/17 05:00 Gran % 42.1 % (50.0-68.0) L 04/17/17 05:00 Lymph % (Auto) 46.8 % (22.0-35.0) H 04/17/17 05:00 [place] % (Auto) 8.2 % (1.0-6.0) H 04/17/17 05:00 Eos % (Auto) 2.5 % (1.5-5.0) 04/17/17 05:00 Baso % (Auto) 0.4 % (0.0-3.0) 04/17/17 05:00 Gran # 3.95 (1.4-6.5) 04/17/17 05:00 Lymph # 4.4 (1.2-3.4) H 04/17/17 05:00 [place] # 0.8 (0.1-0.6) H 04/17/17 05:00 Eos # 0.2 (0.0-0.7) 04/17/17 05:00 Baso # 0.04 K/mm3 (0.0-2.0) 04/17/17 05:00 PT 10.7 Seconds (9.9-11.8) 04/14/17 21:59 INR 0.99 (0.93-1.08) 04/14/17 21:59 APTT 27.8 Seconds (23.7-30.8) 04/14/17 21:59 Sodium 135 mmol/L (132-148) 04/17/17 05:00 Potassium 3.8 mmol/L (3.6-5.0) 04/17/17 05:00 Chloride 101 mmol/L (95-110) 04/17/17 05:00 Carbon Dioxide 26 mmol/L (21-33) 04/17/17 05:00 Anion Gap 12 (10-20) 04/17/17 05:00 BUN 9 mg/dL (7-21) 04/17/17 05:00 Creatinine 0.7 mg/dL (0.5-1.4) 04/17/17 05:00 Est GFR ( Amer) > 60 04/17/17 05:00 Est GFR (Non-Af Amer) > 60 04/17/17 05:00 Random Glucose 83 mg/dL (70-110) 04/17/17 05:00 Calcium 8.7 mg/dL (8.4-10.5) 04/17/17 05:00 Total Bilirubin 0.3 mg/dL (0.2-1.3) 04/17/17 05:00 AST 23 U/L (15-39) 04/17/17 05:00 ALT 30 U/L (7-56) 04/17/17 05:00 Alkaline Phosphatase 58 U/L (38-133) 04/17/17 05:00 Total Protein 6.9 g/dL (5.8-8.3) 04/17/17 05:00 Albumin 4.1 g/dL (3.0-4.8) 04/17/17 05:00 Globulin 2.8 gm/dL 04/17/17 05:00 Albumin/Globulin Ratio 1.5 (1.1-1.8) 04/17/17 05:00 Vitamin B6 8.7 ng/mL (2.1-21.7) 04/15/17 07:30 Vitamin B12 348 pg/mL (239-931) 04/15/17 07:30 Discharge Exam - Head Exam Head Exam: ATRAUMATIC, NORMAL INSPECTION, NORMOCEPHALIC Discharge Plan - Discharge Medications Prescriptions: Cyclobenzaprine [Flexeril] 10 mg PO TID PRN #9 tab PRN Reason: Pain, Moderate (4-7) oxyCODONE/Acetaminophen [Percocet 5/325 mg Tab] 1 ea PO Q8 #9 tab Zolpidem [Ambien] 5 mg PO HS PRN #3 tab PRN Reason: Insomnia - Follow Up Plan Condition: STABLE Disposition: HOME/ ROUTINE Instructions: Pneumococcal Vaccine for Adults (GEN), Cigarette Smoking and Your Health (GEN), Chronic Pain (DC) Additional Instructions: You are discharged home. Please see your primary care physician within a week of discharge, for follow- up care as well as referrals for a rail car painter/sandblaster as well as a consulting systems engineer. Dr. Mary's office contact information (pain management physician) is provided as an additional resource if needed. Please continue your home medications. You are given prescriptions for 3 days of the following: zolpidem/ambien 5mg by mouth every night as needed (three tabs), cyclobenzaprine/flexeril 10mg by mouth three times a day (nine tabs) , and percocet 5/325 one tab by mouth every eight hours (9 tabs). Both Ambien and flexeril can make falls more likely and fall precautions were advised to you in person during this hospital stay for use of these medications. As discussed in person, you are provided with a wheelchair for use for a week, after which the wheel chair is to be returned to the [employer] and a separate motorized option is available through your insurance. Please return to the emergency department for any medical emergency. Referrals: Sammy Moreno MD [Primary Care Provider] - Uzair Auguste MD [Staff Provider] - <Jess Knight - Last Filed: 04/20/17 19:55> Provider - Provider Date of Admission: 04/16/17 17:30 Attending physician: Asia Ibanez MD Primary care physician: Sammy Moreno MD Hospital Course - Lab Results Lab Results: Most Recent Lab Values WBC 9.4 10^3/ul (4.5-11.0) 04/17/17 05:00 RBC 4.13 10^6/uL (3.5-6.1) 04/17/17 05:00 Hgb 11.8 gm/dL (12.0-16.0) L 04/17/17 05:00 Hct 36.0 % (36.0-48.0) 04/17/17 05:00 MCV 87.2 fL (80.0-105.0) 04/17/17 05:00 MCH 28.6 pg (25.0-35.0) 04/17/17 05:00 MCHC 32.8 g/dl (31.0-37.0) 04/17/17 05:00 RDW 14.3 % (11.5-14.5) 04/17/17 05:00 Plt Count 487 10^3/uL (120.0-450.0) H 04/17/17 05:00 MPV 9.0 fl (7.0-11.0) 04/17/17 05:00 Gran % 42.1 % (50.0-68.0) L 04/17/17 05:00 Lymph % (Auto) 46.8 % (22.0-35.0) H 04/17/17 05:00 [place] % (Auto) 8.2 % (1.0-6.0) H 04/17/17 05:00 Eos % (Auto) 2.5 % (1.5-5.0) 04/17/17 05:00 Baso % (Auto) 0.4 % (0.0-3.0) 04/17/17 05:00 Gran # 3.95 (1.4-6.5) 04/17/17 05:00 Lymph # 4.4 (1.2-3.4) H 04/17/17 05:00 [place] # 0.8 (0.1-0.6) H 04/17/17 05:00 Eos # 0.2 (0.0-0.7) 04/17/17 05:00 Baso # 0.04 K/mm3 (0.0-2.0) 04/17/17 05:00 PT 10.7 Seconds (9.9-11.8) 04/14/17 21:59 INR 0.99 (0.93-1.08) 04/14/17 21:59 APTT 27.8 Seconds (23.7-30.8) 04/14/17 21:59 Sodium 135 mmol/L (132-148) 04/17/17 05:00 Potassium 3.8 mmol/L (3.6-5.0) 04/17/17 05:00 Chloride 101 mmol/L (95-110) 04/17/17 05:00 Carbon Dioxide 26 mmol/L (21-33) 04/17/17 05:00 Anion Gap 12 (10-20) 04/17/17 05:00 BUN 9 mg/dL (7-21) 04/17/17 05:00 Creatinine 0.7 mg/dL (0.5-1.4) 04/17/17 05:00 Est GFR ( Amer) > 60 04/17/17 05:00 Est GFR (Non-Af Amer) > 60 04/17/17 05:00 Random Glucose 83 mg/dL (70-110) 04/17/17 05:00 Calcium 8.7 mg/dL (8.4-10.5) 04/17/17 05:00 Total Bilirubin 0.3 mg/dL (0.2-1.3) 04/17/17 05:00 AST 23 U/L (15-39) 04/17/17 05:00 ALT 30 U/L (7-56) 04/17/17 05:00 Alkaline Phosphatase 58 U/L (38-133) 04/17/17 05:00 Total Protein 6.9 g/dL (5.8-8.3) 04/17/17 05:00 Albumin 4.1 g/dL (3.0-4.8) 04/17/17 05:00 Globulin 2.8 gm/dL 04/17/17 05:00 Albumin/Globulin Ratio 1.5 (1.1-1.8) 04/17/17 05:00 Vitamin B6 8.7 ng/mL (2.1-21.7) 04/15/17 07:30 Vitamin B12 348 pg/mL (239-931) 04/15/17 07:30 Attending/Attestation - Attestation I have personally seen and examined this patient.: Yes I have fully participated in the care of the patient.: Yes I have reviewed all pertinent clinical information, including history, physical exam and plan: Yes Notes (Text): 04/20/17 19:53 Patient seen and examined independently at bedside along with the resident. vitals, labs, notes reviewed including recent work regarding disposition arrangements. patient overall feels better compared to admission and understands the chronicity of her symptoms. Expressing frustration with her insurance company. Advised outpatient follow up options for PM&R. Further Plan of care as outlined as discussed with the patient and the resident and is outlined above.
--- NOTE | 2017-05-10 15:31 | CON ---
DATE: 05/10/2017 SOCIAL SECURITY: ____. The patient is a 42-year-old female with past medical history of complex regional pain syndrome, Lyme 's disease, sarcoidosis, dizziness, fibromyalgia. She presented to the ED with right ankle pain on 0 04/14/2017. Denied any trauma or injury to the foot. She reported that when she came to the ED, she could not put weight down on her left leg. She stated about 3 weeks ago the pain started on her righ t. Over the past 4 days the pain had gotten worse and she cannot place weight on her right leg. The patient states that she also has chronic dizziness and has fallen twice recently. Denied any loss o f consciousness. X-ray done showed no acute findings on the right leg and ankle. The patient was in the ED yesterday with the same pain. X-rays showed no acute findings. The patient returned today s tating that she cannot tolerate the pain and wanted to have an MRI. PAST MEDICAL HISTORY: Complex regional pain syndrome, Lyme's disease, dizziness, asthma and fibromya lgia. ALLERGIES: ASPIRIN, ACETAMINOPHEN, IBUPROFEN AND HEPARIN. SOCIAL HISTORY: Denies smoking, alcohol use or illicit drug use. PHYSICAL EXAMINATION: CONSTITUTIONAL: Decline: Denies any decline in health, fatigue, fever, weakness, weight gain or alessia ght loss. Absent nasal congestion, sore throat. HEART: S1, S2 audible. Denies chest pain or dyspnea. GENERAL: The patient in no acute distress. HEAD AND EYES: Atraumatic, normocephalic. Eyes: EOMI. Normal appearance. RESPIRATORY: Lungs clear to auscultation. Absent rhonchi, wheezes or respiratory distress. HEART: Regular rhythm S1, S2. No tachycardia. GASTROINTESTINAL: Normal bowel sounds. No tenderness upon palpation. EXTREMITIES: Positive for calf tenderness and pain to the right lower leg; pedal pulses present. NEUROLOGIC: Alert and oriented x 3. Skin: Clean, dry and intact. VITAL SIGNS: Stable. ASSESSMENT AND PLAN: Intractable right leg pain. Will begin patient on OxyContin 15 mg twice a day. X-ray was done; it showed no acute disease. Continue Toradol every 6 hours for pain and will follo w up. Uzair Auguste MD cc: [id number] TT: 05/10/2017 14:59:05 Confirmation # [id number] Dictation # [id number] mn
--- NOTE | 2017-05-10 15:31 | CON ---
DATE: 04/19/2017 This is dictating for Dr. Uzair Auguste, pain management. HISTORY OF PRESENT ILLNESS: The patient is a 42-year-old female with history of complex regional marcial n syndrome, Lyme's disease, sarcoidosis, dizziness and asthma, still continues with right leg pain; h owever, she is feeling better. She reports that she still cannot place weight on her right leg. The patient still denies dizziness at this time, but does have history of falls. Discharge planning is in progress and patient is stable right now. ALLERGIES: ASPIRIN, ACETAMINOPHEN, IBUPROFEN AND HEPARIN. SOCIAL HISTORY: Denies smoking, alcohol use, illicit drug use. PAST MEDICAL HISTORY: Complex regional pain syndrome, Lyme disease, sarcoidosis, dizziness, asthma a nd fibromyalgia. PHYSICAL EXAMINATION: CONSTITUTIONAL: Denies chills, fatigue, fever, weakness and weight gain. HEENT: Head normocephalic, atraumatic. No masses. Sclerae are white. No conjunctivae . The eyelids are without lesions. RESPIRATORY: Clear upon auscultation. No decreased breath sounds or rhonchi. CARDIOVASCULAR: Regular rhythm, S1, S2. GASTROINTESTINAL: Normal bowel sounds, soft, nondistended. EXTREMITIES: Positive for calf tenderness. NEUROLOGIC: Alert and oriented x 3. SKIN: Dry, intact, normal. Positive swelling to the right ankle. MUSCULOSKELETAL: Full range of motion. There is diffuse joint line tenderness. Overlying skin show s no redness. Mild acute inflammation, which has subsided since last. ASSESSMENT AND PLAN: Continue to monitor the right ankle for swelling. The swelling has decreased s roxanna previous initial visit on 04/16/2017. Continue OxyContin 15 mg twice a day and continue physica l therapy. Will consider patient for subacute rehabilitation and discharge planning. Uzair Auguste MD cc: [phone] TT: 05/10/2017 14:49:59 Confirmation # [id number] Dictation # [id number] mirian
== END 2017-04-20 19:22 | disposition home or self-care (01) ==
LOC: ED 18:25 → ERH 21:45 → 5RSO 23:49 → OBSVTOIN 04-16 17:30 → INTOOBSV 04-16 17:30
PROVIDERS: ADMIT Internal Medicine; ATTEND Internal Medicine
DX: G90.523 Complex regional pain syndrome I of lower limb, bilateral (principal); D86.9 Sarcoidosis, unspecified; A69.20 Lyme disease, unspecified; F41.9 Anxiety disorder, unspecified; F43.10 Post-traumatic stress disorder, unspecified; J45.909 Unspecified asthma, uncomplicated; M79.7 Fibromyalgia; Z90.49 Acquired absence of other specified parts of digestive tract; Z91.410 Personal history of adult physical and sexual abuse; Z88.6 Allergy status to analgesic agent; Z88.8 Allergy status to other drugs, medicaments and biological substances; Z87.892 Personal history of anaphylaxis; G47.00 Insomnia, unspecified
CPT/HCPCS: 36415; 80053; 82607; 84378; 85025; 85610; 85730; 93971; 97110; 97161; 99284; G0378; G8978; G8979; J1885

== ENCOUNTER 2018-12-08 13:11 | Outpatient (CLI) | payer MEDICAID | END 2018-12-08 13:12 | disposition home or self-care (01) | LOC: RAD 13:11 ==